=== PATIENT | male | born 1995 | race Caucasian/White ===

== ENCOUNTER 2017-07-25 08:04 | Emergency (ER) | payer BC, OTHER ==
[2017-07-25 08:15] VITALS: BP 101/70
--- NOTE | 2017-07-25 08:28 | UC ---
Laceration HPI - HPI Summary HPI Summary: laceration right lower leg x 3 hrs ago cut his right lower leg at work with a sharp knife - History Of Current Complaint Chief Complaint: UCLaceration Stated Complaint: RIGHT LEG LAC (WC) Time Seen by Provider: 07/25/17 08:17 Hx Obtained From: Patient Laceration Location: Ankle - right lower leg Mechanism Of Injury: Sharp Trauma - sharp knife at work Onset/Duration: Sudden Onset Severity: Moderate Aggravating Factors: Movement Related History: Occupational Injury - Allergies/Home Medications Allergies/Adverse Reactions: Allergies Allergy/AdvReac Type Severity Reaction Status Date / Time Amoxicillin Allergy Hives Verified 07/25/17 08:15 Shellfish Allergy Allergy HIVES/ Verified 07/25/17 08:15 SWELLING PMH/Surg Hx/FS Hx/Imm Hx Previously Healthy: Yes - Surgical History Surgical History: Yes Surgery Procedure, Year, and Place: APPENDECTOMY-2011 - Family History Known Family History: Positive: None Negative: Diabetes - Social History Alcohol Use: Occasionally Substance Use Type: None Smoking Status (MU): Never Smoked Tobacco Have You Smoked in the Last Year: No - Immunization History Most Recent Tetanus Shot: unknown Review of Systems Constitutional: Negative Eyes: Negative ENT: Negative Respiratory: Negative Is Patient Immunocompromised?: No All Other Systems Reviewed And Are Negative: Yes Physical Exam Triage Information Reviewed: Yes Appearance: Well-Appearing, No Pain Distress, Well-Nourished Vital Signs: Initial Vital Signs Temp 99.2 F 07/25/17 08:09 Pulse 93 07/25/17 08:09 Resp 24 07/25/17 08:09 BP 101/70 07/25/17 08:09 Vital Signs Reviewed: Yes Eyes: Positive: Conjunctiva Clear ENT: Positive: Normal ENT inspection, Hearing grossly normal, Pharynx normal Neck: Positive: Supple, Nontender, No Lymphadenopathy Respiratory: Positive: Chest non-tender, Lungs clear, Normal breath sounds Cardiovascular: Positive: RRR, No Murmur, Pulses Normal Skin: Positive: Other - laceration right lower leg , 3 cm in diameter, Laceration Repair - Laceration Repair 1 Description: Linear Laceration Size After Repair: Length (cm) - 3, Width (mm) - 3, Depth (mm) - 3 Modified For Repair: No Type Injection: Local Anesthesia Used: 2.0% Lido - 5 cc Additive Used (in ml): Epi Cleansing Completed Via Routine Prep: Yes Irrigation With Pressure Irrigation Device: Yes Closure Material: Sutures Closure Method: Single Layer Suture Of: Skin Suture Type: Nylon - 4.0 x 6 Laceration Course/Dx - Differential Dx - Laceration/Wound Provider Diagnoses: laceration right lower leg Discharge - Discharge Plan Condition: Stable Disposition: HOME Patient Education Materials: Laceration (ED) Referrals: KARIN Sol [Primary Care Provider] - Additional Instructions: follow up in 10 days for suture removal
[2017-07-25] MEDS ORDERED: Lidocaine 2% EPI 1:200000 MPF* 20 ML VIAL INJ ONE (08:41)
[2017-07-25] MEDS ORDERED: Lidocaine 2% W/EPI 1:100,000* 20 ML MDV INJ ONE (08:45)
== END 2017-07-25 09:27 | disposition home or self-care (01) ==
LOC: UCCORT 08:04
DX: S91.011A Laceration without foreign body, right ankle, initial encounter (principal); W26.0XXA Contact with knife, initial encounter; Y92.89 Other specified places as the place of occurrence of the external cause; Y99.0 Civilian activity done for income or pay
CPT/HCPCS: 12002; 99211; G0463

== ENCOUNTER 2018-11-15 07:20 | Emergency (ER) | payer BC, MEDICAID ==
[2018-11-15 07:34] VITALS: BP 117/69
--- NOTE | 2018-11-15 08:01 | UC ---
General HPI - HPI Summary HPI Summary: Late yesterday noticed left shoulder pain. Debilitating this morning. 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 Denies any inciting event. Just came on abruptly. No change in his physical exertion. No CP or SOB. All in his posterior shoulder and inferior to it. Denies any history of shoulder pain in the past. Is under a lot of stress recently. PMhx : reviewed Meds: reviewed - History of Current Complaint Chief Complaint: UCBackPain Stated Complaint: BACK PAIN Time Seen by Provider: 11/15/18 07:50 Pain Intensity: 8 - Allergy/Home Medications Allergies/Adverse Reactions: Allergies Allergy/AdvReac Type Severity Reaction Status Date / Time amoxicillin Allergy Hives Verified 11/15/18 07:30 shellfish derived Allergy Hives Verified 11/15/18 07:30 Home Medications: Home Medications Ibuprofen TAB* [Advil TAB*] 400 mg PO Q6H PRN 11/15/18 [History Confirmed ] PMH/Surg Hx/FS Hx/Imm Hx Previously Healthy: Yes - Surgical History Surgical History: Yes Surgery Procedure, Year, and Place: APPENDECTOMY-2011 - Family History Known Family History: Positive: None Negative: Diabetes - Social History Alcohol Use: Occasionally Substance Use Type: None Smoking Status (MU): Never Smoked Tobacco Have You Smoked in the Last Year: No - Immunization History Most Recent Tetanus Shot: unknown Review of Systems All Other Systems Reviewed And Are Negative: Yes Physical Exam Triage Information Reviewed: Yes Appearance: Well-Appearing Vital Signs: Initial Vital Signs Temp 97.4 F 11/15/18 07:31 Pulse 77 11/15/18 07:31 Resp 15 11/15/18 07:31 BP 117/69 11/15/18 07:31 Pulse Ox 99 11/15/18 07:31 Vital Signs Reviewed: Yes Musculoskeletal: Positive: Strength Intact, ROM Intact, Other: - pain over latissimus dorsi muscle region on left Skin Exam: Normal Course/Dx - Course Course Of Treatment: This is a previously healthy 23 yr old with shoulder pain. Assessment. Suspect muscle spasm. COuld be early Shingles (no rash). Plan. Suspect this is most likely a muscle spasm can trial flexeril (muscle relaxer ) as prescribed as needed for pain. Continue ibuprofen 600-800 mg every 4-6 hours as needed - take with food. If you start noticing redness or rash in shoulder region - start Valacyclovir (Valtrex) as prescribed. If symptoms persist, or worsen call PCP for further evaluation - Diagnoses Provider Diagnosis: Muscle spasm Discharge - Sign-Out/Discharge Documenting (check all that apply): Patient Departure All imaging exams completed and their final reports reviewed: No Studies - Discharge Plan Condition: Good Disposition: HOME Prescriptions: Cyclobenzaprine TAB* [Flexeril 10 MG TAB*] 10 mg PO TID PRN #15 tab PRN Reason: Spasms ValACYclovir (*) [Valtrex 1 GM(*)] 1 gm PO TID #21 tab Patient Education Materials: Muscle Spasm (ED) Referrals: No Primary Care Phys,NOPCP [Primary Care Provider] - Additional Instructions: Suspect this is most likely a muscle spasm can trial flexeril (muscle relaxer) as prescribed as needed for pain Continue ibuprofen 600-800 mg every 4-6 hours as needed - take with food If you start noticing redness or rash in shoulder region - start Valacyclovir ( Valtrex) as prescribed If symptoms persist, or worsen call PCP for further evaluation - Billing Disposition and Condition Condition: GOOD Disposition: Home
== END 2018-11-15 08:06 | disposition home or self-care (01) ==
LOC: UCCORT 07:20
DX: M62.838 Other muscle spasm (principal); Z88.0 Allergy status to penicillin; Z91.013 Allergy to seafood
CPT/HCPCS: 99212; G0463

== ENCOUNTER 2018-12-26 18:28 | Emergency (ER) | payer BC, MEDICAID ==
--- NOTE | 2018-12-26 18:41 | UC ---
Dizzy HPI HPI Summary: 23 yo male with the onset of chest tightness/dizziness and mild cough this afternoon while at work no f/c no sob no YEUNG or myalgias - History Of Current Complaint Chief Complaint: UCChestPain Stated Complaint: CHEST TIGHTNESS,DIZZINESS Time Seen by Provider: 12/26/18 18:40 Hx Obtained From: Patient Onset/Duration: Gradual Onset Timing: Constant Severity Initially: Mild Severity Currently: Mild Pain Intensity: 3 Pain Scale Used: 0-10 Numeric Character: Lightheaded, Dizzy Aggravating Factor(s): Nothing Alleviating Factor(s): Nothing Associated Signs And Symptoms: Negative: Nausea, Vomiting, Diaphoresis, Tinnitus , SOB, Palpitations, Visual Changes, Decreased Oral Intake, Change In Medication , Change In Diet - Allergies/Home Medications Allergies/Adverse Reactions: Allergies Allergy/AdvReac Type Severity Reaction Status Date / Time amoxicillin Allergy Hives Verified 12/26/18 18:37 shellfish derived Allergy Hives Verified 12/26/18 18:37 PMH/Surg Hx/FS Hx/Imm Hx Previously Healthy: Yes - Surgical History Surgical History: Yes Surgery Procedure, Year, and Place: APPENDECTOMY-2011 - Family History Known Family History: Positive: Hypertension Negative: Diabetes - Social History Alcohol Use: Occasionally Substance Use Type: None Smoking Status (MU): Never Smoked Tobacco Have You Smoked in the Last Year: No - Immunization History Most Recent Tetanus Shot: unknown Review of Systems All Other Systems Reviewed And Are Negative: Yes Constitutional: Positive: Negative Skin: Positive: Negative Eyes: Positive: Negative ENT: Positive: Negative Respiratory: Positive: Cough Cardiovascular: Positive: Other - chest feels tight Gastrointestinal: Positive: Negative Genitourinary: Positive: Negative Motor: Positive: Negative Neurovascular: Positive: Negative Musculoskeletal: Positive: Negative Neurological: Positive: Negative Psychological: Positive: Negative Physical Exam Triage Information Reviewed: Yes Appearance: Well-Appearing, No Pain Distress, Well-Nourished Vital Signs: Initial Vital Signs Temp 98.0 F 12/26/18 18:34 Pulse 82 12/26/18 18:34 Resp 19 12/26/18 18:34 BP 130/80 12/26/18 18:34 Pulse Ox 98 12/26/18 18:34 Vital Signs Reviewed: Yes Eyes: Positive: Conjunctiva Clear ENT: Positive: Hearing grossly normal, Uvula midline. Negative: Nasal congestion, Nasal drainage, Tonsillar swelling, Tonsillar exudate, Trismus, Muffled voice, Hoarse voice, Dental tenderness, Sinus tenderness Neck: Positive: Supple, Nontender, No Lymphadenopathy Respiratory: Positive: Lungs clear, Normal breath sounds, No respiratory distress, No accessory muscle use Cardiovascular: Positive: RRR, No Murmur Musculoskeletal: Positive: ROM Intact, No Edema Neurological: Positive: Alert Psychological Exam: Normal Skin Exam: Normal Dizzy Course/Dx - Differential Dx/Diagnosis Provider Diagnosis: Dizziness, nonspecific Discharge - Sign-Out/Discharge Documenting (check all that apply): Patient Departure All imaging exams completed and their final reports reviewed: No Studies - Discharge Plan Condition: Stable Disposition: HOME Patient Education Materials: Dizziness (ED) Referrals: No Primary Care Phys,NOPCP [Primary Care Provider] - Additional Instructions: I am unsure of the cause of you symptoms you may be at the start of a viral illness rest fluids tylenol or advil if needed see you provider at [facility] tomorrow if dizziness persists - Billing Disposition and Condition Condition: STABLE Disposition: Home
[2018-12-26 19:00] VITALS: BP 130/82
[2018-12-26 19:25] LABS: Influenza A Molecular NEGATIVE (Negative); Influenza B Molecular NEGATIVE (Negative)
== END 2018-12-26 19:39 | disposition home or self-care (01) ==
LOC: UCCORT 18:28
DX: R42 Dizziness and giddiness (principal); R05 Cough; Z91.013 Allergy to seafood; Z88.0 Allergy status to penicillin
CPT/HCPCS: 93005; 99212; G0463

== ENCOUNTER 2019-03-19 16:01 | Emergency (ER) | payer BC, MEDICAID ==
[2019-03-19] MEDS ORDERED: Levalbuterol 0.63MG/3ML NEB* UNIT OF USE INH ONE (17:08)
--- NOTE | 2019-03-19 17:13 | UC ---
General HPI - HPI Summary HPI Summary: Patient presents to urgent care stating over the last 5-6 months progressively he feels like he is short of breath at the end of deep inspiration. Patient states also at the end of deep inspiration he feels a little bit tightness in his chest. Patient reports a dry cough. Does not wake him up at night. 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 Patient states he was here several months ago for similar symptoms. Patient did not follow-up with his primary. At that time patient reported he felt dizzy. Patient states he no longer feels dizzy but states he is just concerned as this is persistent. 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 Patient states he continues to work every day but states he feels like he gets more short of breath that is new and different for him. Patient denies nausea and vomiting. No waking. No swelling in his legs. Patient denies any calf pain. No history of asthma. Patient does not smoke cigarettes or illicit substances. Patient does drink alcohol intermittently. Patient without a history of asthma. Patient does not know family history but does not know of any history of asthma or COPD. Patient's medications reviewed this visit. - History of Current Complaint Chief Complaint: UCChestPain Stated Complaint: CHEST TIGHTNESS Time Seen by Provider: 03/19/19 16:51 Hx Obtained From: Patient, Medical Records Pain Intensity: 6 - Allergy/Home Medications Allergies/Adverse Reactions: Allergies Allergy/AdvReac Type Severity Reaction Status Date / Time amoxicillin Allergy Hives Verified 03/19/19 16:13 shellfish derived Allergy Hives Verified 03/19/19 16:13 PMH/Surg Hx/FS Hx/Imm Hx Previously Healthy: Yes - Surgical History Surgical History: Yes Surgery Procedure, Year, and Place: APPENDECTOMY-2012 - Family History Known Family History: Positive: None, Hypertension Negative: Cardiac Disease, Diabetes, Respiratory Disease - Social History Occupation: Employed Full-time Lives: With Family Alcohol Use: Occasionally Alcohol Amount: once a week Substance Use Type: None Smoking Status (MU): Never Smoked Tobacco Have You Smoked in the Last Year: No - Immunization History Most Recent Tetanus Shot: unknown Review of Systems All Other Systems Reviewed And Are Negative: Yes Constitutional: Positive: Negative Skin: Positive: Negative Eyes: Positive: Negative Respiratory: Positive: Shortness Of Breath - with heavy exertion, Cough - non productive Cardiovascular: Positive: Chest Pain - and peak inspiratoin only feels "tight" Physical Exam - Summary Physical Exam Summary: Vital Signs Reviewed: Yes A+Ox3, no distress Eyes: Conjunctiva Clear, ASAF. EOM intact and full ENT: Hearing grossly normal TM x 2 clear, mmoist, uvula midline, no exudate, no erythema Neck: Positive: Supple Respiratory: Positive: No respiratory distress, No accessory muscle use + CTA throughout no w/r very slight end exp wheeze, speaking full, easy sentenced Cardiovascular: RRR nl s1, s2 no m/r CBT <2 sec no bruits b/l abd soft + BS nt/nd no guarding, no distension Musculoskeletal Exam: PALMA x 4 without difficulty Strength Intact, ROM Intact Neurological: Positive: Alert, + sensation throughout Psychological: Positive: Normal Response To Family Skin: Positive: no rash, no ecchymosis Triage Information Reviewed: Yes Vital Signs: Initial Vital Signs Temp 98.2 F 03/19/19 16:06 Pulse 58 03/19/19 16:06 Resp 16 03/19/19 16:06 BP 112/63 03/19/19 16:06 Pulse Ox 100 03/19/19 16:06 Diagnostics - Radiology No standard instances Radiology Interpretation Completed By: Radiologist - Patient Name: KELLY MORSE Medical Record#: [id number] Ordering Physician: Doreen Lynch MD Acct.#: [id number] : 1995 Age: 23 Sex: M Location: [facility] Exam Date: 03/19/191707 ADM Status: REG ER Order Information: CHEST PA & LAT 2 VWS Accession Number: [id number] CPT: 25038 INDICATION: Dry cough mild shortness of breath. COMPARISON: Comparison is made with a prior chest x-ray study from March 20, 2014. TECHNIQUE: Dual-energy PA and lateral views of the chest were obtained. FINDINGS: The heart is within normal limits in size. Mediastinal and hilar contours appear within normal limits. The lungs are clear. No pleural effusion is seen. IMPRESSION: NO EVIDENCE FOR ACTIVE CARDIOPULMONARY DISEASE. <Electronically signed by Yogi Fields MD in OV> 03/19/191754 Dictated By: Yogi Fields MD Dictated Date/Time: 03/19/191754 Transcribed Date/Time: 03/19/191753 Copy to: CC:KARIN Sol ; Doreen Lynch MD Imaging - [facility] Imaging - [facility] Imaging - [facility] [address] [id number] [id number] [place] [phone] ph ([phone]) ph ([phone]) ph ([phone]) This report is only to be considered final once signed by the Provider(s) as displayed in the "<Electronically Signed by >" field (s). Absence of a signature indicates the report is in a draft status and still needs to be finalized. In the event this document was created by someone other than the signing Provider, the individual initiating the document will be listed in the "Entered by:" or "Dictated by:" gaytan. 1 of 1 - EKG Cardiac Rate: NL - 68 sinus, slight atrial variability, no STEMI Re-Evaluation - Re-Evaluation First Eval Re-Evaluation Time: 18:04 Change: Improved Comment: Pt states he feels improved after nebulizer. reviewed CXR with pt. will dc with Rx albuterol, pacer. f/u with PCP or physician referral center. strict return precautions discussed. pt comfortable and in agreement with plan Course/Dx - Course Course Of Treatment: Patient reports 5-6 months of feeling short of breath with significant exertion. Patient states he also feels some tightness in his chest with end inspiration. Patient reports a cough is nonproductive. Patient was seen at urgent care for similar symptoms on 12/26/18. Patient is a this time was instructed to follow-up with PCP but did not. Patient states he goes to [facility]. Patient states at that time he remembers feeling dizzy but does not currently feel dizzy. On exam vital signs are stable. Patient EKG shows a normal sinus without any acute ST-T wave changes. Patient does have very slight end expiratory wheeze with deep breath. No bruits. We'll check a chest x-ray given a Xopenex. If follow this is unremarkable anticipate we'll discharge patient with close follow-up with his PCP or physician referral center. Patient given strict return instructions were patient comfortable in agreement with plan. - Diagnoses Provider Diagnosis: Shortness of breath Discharge - Sign-Out/Discharge Documenting (check all that apply): Patient Departure All imaging exams completed and their final reports reviewed: Yes - Discharge Plan Condition: Stable Disposition: HOME Prescriptions: Albuterol HFA INHALER* [Ventolin HFA Inhaler*] 2 puff INH Q4H PRN #1 mdi PRN Reason: wheeze Inhaler, Assist Devices [Aerochamber Mv] 1 each PO Q4HR #1 spacer Patient Education Materials: Shortness of Breath (ED) Referrals: KARIN Sol [Primary Care Provider] - [facility] [Outside] Additional Instructions: - stay well hydrated. drink plenty of non-alcoholic, non-caffinated beverages - Use your inhaler as prescribed - Contact your doctor tomorrow or the physician referral center TOMORROW to schedule a follow-up appointment. It is recommended you do not participate in vigorous exercise or activity until you are seen in follow-up= If you develop chest pain, lightheadedness, difficulty catching your breath or any other concerns it is recommended you go immediately to the emergency department - Billing Disposition and Condition Condition: STABLE Disposition: Home
[2019-03-19 18:27] VITALS: BP 118/60
== END 2019-03-19 18:22 | disposition home or self-care (01) ==
LOC: UCCORT 16:01
DX: R06.02 Shortness of breath (principal)
CPT/HCPCS: 71046; 93005; 99212; G0463

== ENCOUNTER 2019-04-10 19:49 | Emergency (ER) | payer BC, MEDICAID ==
--- OUTSIDE RECORDS SUMMARY | 2019-04-10 20:01 | XMS REPORT | Continuity of Care Document ---
:1995 External Reference #:[id number] Author Name BECCA Montalvo Address 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 Tobacco Use Start: Unknown Never Smoked Cigarettes ETOH Use Social Alcohol Exercise Type/Frequency Exercises regularly Allergies, Adverse Reactions, Alerts Active Allergies Reaction Severity Comments Date Amoxicillin 03/28/2019 Shellfish-Derived Products 03/28/2019 Medications Active Medications SIG Qnty Indications Ordering Provider Date Albuterol Sulfate HFA take 1-2 puffs Unknown inhaled every 4 108(90Base) mcg/Act hours as needed for Aerosol shortness of breath Vital Signs Date Vital Result Comment 03/28/2019 2:02pm BP Systolic 116 mmHg BP Diastolic 60 mmHg Heart Rate 70 /min Body Temperature 98.8 F Height 73.75 inches 6'1.75" Weight 192.00 lb BMI (Body Mass Index) 24.8 kg/m2 Plan of Treatment 03/28/2019 - MERCEDEZ [email or web address] Dyspnea, unspecifiedComments:Refer to Dr. Reynolds, audit clerks supervisor, to evaluate and treat Enc pt to use the mask at work daily to avoid worsening sxFollow up:Followup:. (Follow up)
== END 2019-04-10 20:01 | disposition left against medical advice (07) ==
LOC: UCCORT 19:49
DX: T15.92XA Foreign body on external eye, part unspecified, left eye, initial encounter (principal); Z53.21 Procedure and treatment not carried out due to patient leaving prior to being seen by health care provider

== ENCOUNTER 2020-01-06 13:22 | Emergency (ER) | payer BC, MEDICAID ==
--- NOTE | 2020-01-06 13:49 | UC ---
Abdominal Pain Male HPI - HPI Summary HPI Summary: Pt presents with c/o sudden onset of nausea, vomiting, and diarrhea, "waves" of fatigue and generalized malaise that began on 01/02/20. Pt states that he has had one episode of nausea and vomiting, and diarrhea that was at initial onset. Pt denies urinary symptoms, reports that he is passing urine and having BM's - History of Current Complaint Chief Complaint: UCGI Stated Complaint: ABDOMINAL PAIN Time Seen by Provider: 01/06/20 13:30 Hx Obtained From: Patient Onset/Duration: Sudden Onset, Lasting Days, Still Present Timing: Intermittent Episodes Lasting: Severity Initially: Moderate Severity Currently: Mild Pain Intensity: 5 Location: Diffuse Radiates: No Character: Aching, Colicy, Dull Aggravating Factor(s): Nothing Alleviating Factor(s): Rest Associated Signs And Symptoms: Positive: Nausea, Vomiting, Diarrhea - Risk Factors Testicular Torsion: Negative Cardiac Risk Factors: Negative - Allergies/Home Medications Allergies/Adverse Reactions: Allergies Allergy/AdvReac Type Severity Reaction Status Date / Time amoxicillin Allergy Hives Verified 01/06/20 13:37 shellfish derived Allergy Hives Verified 01/06/20 13:37 Home Medications: Home Medications Albuterol HFA INHALER* [Ventolin HFA Inhaler*] 2 puff INH Q4H PRN #1 mdi [Rx Confirmed 01/06/20] Inhaler, Assist Devices [Aerochamber Mv] 1 each PO Q4HR PRN 01/06/20 [History Confirmed 01/06/20] Ondansetron TAB* [Zofran 4 MG Tab*] 4 mg PO Q8H PRN #9 tab 01/06/20 [Rx] PMH/Surg Hx/FS Hx/Imm Hx Previously Healthy: Yes - Surgical History Surgical History: Yes Surgery Procedure, Year, and Place: APPENDECTOMY-2012 - Family History Known Family History: Positive: Hypertension Negative: Cardiac Disease, Diabetes, Respiratory Disease - Social History Occupation: Employed Full-time Lives: With Family Alcohol Use: Occasionally Alcohol Amount: once a week Substance Use Type: None Smoking Status (MU): Never Smoked Tobacco Have You Smoked in the Last Year: No - Immunization History Most Recent Tetanus Shot: unknown Vaccination Up to Date: Yes Review of Systems All Other Systems Reviewed And Are Negative: Yes Constitutional: Positive: Fatigue Skin: Positive: Negative Eyes: Positive: Negative ENT: Positive: Negative Respiratory: Positive: Negative Cardiovascular: Positive: Negative Gastrointestinal: Positive: Abdominal Pain, Vomiting, Diarrhea, Nausea Genitourinary: Positive: Negative Motor: Positive: Negative Neurovascular: Positive: Negative Musculoskeletal: Positive: Myalgia Neurological/Mental Status: Positive: Negative Psychological: Positive: Negative Is Patient Immunocompromised?: No Physical Exam Triage Information Reviewed: Yes Appearance: Well-Appearing Vital Signs: Initial Vital Signs Temp 98 F 01/06/20 13:30 Pulse 80 01/06/20 13:30 Resp 14 01/06/20 13:30 BP 115/68 01/06/20 13:30 Pulse Ox 98 01/06/20 13:30 Vital Signs Reviewed: Yes Eye Exam: Normal ENT Exam: Normal Dental Exam: Normal Neck exam: Normal Respiratory Exam: Normal Respiratory: Positive: No respiratory distress Cardiovascular Exam: Normal Abdomen Description: Positive: Other: - tender/discomfort at LUQ Bowel Sounds: Positive: Present Musculoskeletal Exam: Normal Neurological Exam: Normal Psychological Exam: Normal Skin Exam: Normal Abd Pain Male Course/Dx - Differential Dx/Clinical Impression Differential Diagnosis/HQI/PQRI: Bowel Obstruction, Constipation, Diverticulitis , Urinary Tract Infection Provider Diagnosis: Nausea & vomiting, Diarrhea, Left upper quadrant abdominal pain Discharge ED - Sign-Out/Discharge Documenting (check all that apply): Patient Departure All imaging exams completed and their final reports reviewed: No Studies - Discharge Plan Condition: Stable Disposition: HOME Prescriptions: Ondansetron TAB* [Zofran 4 MG Tab*] 4 mg PO Q8H PRN #9 tab PRN Reason: Nausea Patient Education Materials: Acute Nausea and Vomiting (ED), Abdominal Pain (ED ) Referrals: [facility] [Outside] - If Needed No Primary Care Phys,NOPCP [Primary Care Provider] - - Billing Disposition and Condition Condition: STABLE Disposition: Home
[2020-01-06 14:09] VITALS: BP 115/68
== END 2020-01-06 13:55 | disposition home or self-care (01) ==
LOC: UCCORT 13:22
DX: R11.2 Nausea with vomiting, unspecified (principal); R19.7 Diarrhea, unspecified; R10.12 Left upper quadrant pain; R53.83 Other fatigue; R53.81 Other malaise; Z90.89 Acquired absence of other organs; Z88.0 Allergy status to penicillin; Z91.013 Allergy to seafood
CPT/HCPCS: 99212; G0463